=== PATIENT | female | born 2005 | race African-American/Black ===

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

== ENCOUNTER 2025-07-10 09:26 | Emergency (ER) | payer SELFPAY ==
--- OUTSIDE RECORDS SUMMARY | 2025-05-27 05:00 | XMS_ITS ---
Author Organization [facility] Address [address] [place] [address] Care Team Providers Care Java Scala Developer Name Role Phone Nadeem Whitaker Primary Care Provider Janette Lima Unavailable [phone] REASON FOR VISIT 4 week F/U Social History Sex Assigned At : Social History Observation Description Sex Assigned At Female Encounters Encounter Location Date Provider Diagnosis [address] [place] [address] 05/27/2025 Janette Lima Plan Of Treatment Next Appt Details Provider Name:Janette Lima , 07/10/2025 11:20:00 AM, [address] [place] [address] [place], [address], Progress Notes * Balwinder ROPERDOB:2005 (20 yo F)Acc No.[id number]:05/27/2025 UNLOCKED PROGRESS NOTE Patient: Balwinder HAMPTON Provider: KATIANA Escobar :2005 A ge:20 Y S ex:Female Date:05/27/2025 Phone: Address:[address] [place] [id number] Pcp:Nadeem Whitaker Subjective: * Chief Complaints: * 1 . 4 week F/U. * Medical History: Objective: * Vitals: Assessment: Plan: * Treatment: * * Electronic signature of Cher Lima on 07/10/2025 at 10:06 AM CDT Sign off status: Pending * Provider: KATIANA Escobar Date: 0 05/27/2025 Generated for Tahir sue/Kylah/Kemiitting on: 0 07/10/2025 10:06 AM CDT
--- OUTSIDE RECORDS SUMMARY | 2025-06-24 05:00 | XMS_ITS ---
Author Organization [facility] Address [address] [place] [address] Care Team Providers Care Programmer Or Analyst Name Role Phone Nadeem Whitaker Primary Care Provider Janette Lima Unavailable [phone] REASON FOR VISIT last seen 05/01/25 4 week fu Social History Sex Assigned At : Social History Observation Description Sex Assigned At Female Encounters Encounter Location Date Provider Diagnosis [address] [place] [address] 06/24/2025 Janette Lima Plan Of Treatment Next Appt Details Provider Name:Janette Lima , 07/10/2025 11:20:00 AM, [address] [place] [address] , [place], [address], Progress Notes * Balwinder ROPERDOB:2005 (20 yo F)Acc No.[id number]:06/24/2025 UNLOCKED PROGRESS NOTE Patient: Balwinder HAMPTON Provider: KATIANA Escobar :2005 A ge:20 Y S ex:Female Date:06/24/2025 Phone: Address:[address] [place] [phone] Pcp:Nadeem Whitaker Subjective: * Chief Complaints: * 1 . Last seen 05/01/25 4 week fu. * Medical History: Objective: * Vitals: Assessment: Plan: * Treatment: * * Electronic signature of Cher Lima on 07/10/2025 at 10:06 AM CDT Sign off status: Pending * Provider: KATIANA Escobar Date: 0 06/24/2025 Generated for Tahir sue/Kylah/Kareen on: 0 07/10/2025 10:06 AM CDT
--- NOTE | ~2025-07-10 | CT_ITS ---
EXAMINATION: CT abdomen pelvis w con DATE: 07/10/2025 12:19 INDICATION: Abdominal pain, nausea and vomiting TECHNIQUE: Computed tomography (CT) of the abdomen and pelvis was performed with 100 mL Omnipaque-350 intravenous contrast. Automated exposure control and iterative reconstruction technique were employed. The dose-length product was 927.28 mGy-cm. COMPARISON: None FINDINGS: Lung bases are clear. Visualized inferior heart is normal. No pericardial or pleural effusion. Small amount of residual versus reflux fluid in the distal esophagus. Liver, gallbladder, spleen, pancreas, bilateral adrenal glands and kidneys are normal. Bowels including the appendix are normal. Bladder, left ovary and anteverted uterus are normal. There is a 2.4 cm likely ruptured left corpus luteum cyst with defect in the prominent peripherally enhancing wall. Minimal right adnexal free fluid likely related to cyst rupture. No abscess or free intraperitoneal gas. No pathologically enlarged abdominal or pelvic lymphadenopathy. Bones are unremarkable. IMPRESSION: 1. 2.4 cm likely ruptured left ovarian corpus luteum cyst with minimal likely secondary free fluid at the right adnexa. No other acute intra-abdominal/pelvic process. 2. Fluid in the distal esophagus which could be due to recent fluid ingestion or reflux. Reviewed, dictated and finalized at location A. IMPRESSION: 1. 2.4 cm likely ruptured left ovarian corpus luteum cyst with minimal likely s econdary free fluid at the right adnexa. No other acute intra-abdominal/pelvic process. 2. Fluid in the distal esophagus which could be due to recent fluid ingestion o r reflux.
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
[2025-07-10 09:39] VITALS: BP 113/67; PULSE 103; RESP 16; TEMP 36.6; O2SAT 100
--- OUTSIDE RECORDS SUMMARY | 2025-07-10 10:07 | XMS_ITS | Clinical Summary ---
Author Organization [facility] Address [address] [place] [address] Phone Care Team Providers Care Labeling Associate Name Role Phone Provider, None Primary Care Provider Unavailabl e Allergies No known active allergies Medications No known medications Social History Tobacco Use Types Packs/Day Years Used Date Smoking Tobacco: Unknown Tobacco Cessation:Counseling Given: Not Answered Comments Unknown Sex and Gender Information Value Date Recorded Sex Assigned at Not on file Legal Sex Female 1:02 AM [employer] Gender Identity Not on file Sexual Orientation Not on file Last Filed Vital Signs Vital Sign Reading Time Taken Comments Blood Pressure 110/70 04/02/2025 11:08 AM CDT Pulse 80 04/02/2025 11:08 AM CDT Temperature 36.8 C (98.3 F) 04/02/2025 9:23 AM CDT Respiratory Rate 16 04/02/2025 11:08 AM CDT Oxygen Saturation 100% 04/02/2025 11:08 AM CDT Inhaled Oxygen Concentration - - Weight 86.2 kg (190 lb) 04/02/2025 9:23 AM CDT Height 160 cm (5' 3) 04/02/2025 9:23 AM CDT Body Mass Index 33.66 04/02/2025 9:23 AM CDT Plan of Treatment Not on file Care Teams Labeling Associate Relationship Specialty Start Date End Date Provider, None [place] PCP - General 12/21/23
--- OUTSIDE RECORDS SUMMARY | 2025-07-10 10:07 | XMS_ITS | Patient Health Record ---
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 Name Role Phone Sherman Nadeem Primary Care Provider Janette Lima Unavailable [phone] Allergies Allergen (clinical drug ingredient) Drug/Non Drug Allergy documented on EMR Reaction Allergy Type Onset Date Status Cat dander Cat (uncoded) Unknown Allergy Activ e Seasonale Unknown Drug Allergy Active Results Component Value Reference Range Notes Fluoxetine (Prozac), Serum Reviewed date:01/03/2025 12:09:05 PM Interpretation: Performing Lab: Notes/Report: Hemoglobin A1c* Reviewed date:01/08/2025 12:37:42 PM Interpretation: Performing Lab:[facility] [place], [address] [place] [address], Phone - [phone], Director - Megan Notes/Report: Hemoglobin A1c 5.5 4.8-5.6 % . Prediabetes: 5.7 - 6.4 Diabetes: >6.4 Glycemic control for adults with diabetes: <7.0 Vitamin B12* Reviewed date:01/08/2025 12:37:15 PM Interpretation: Performing Lab:[facility] [place], [address] [place], [place] [address] [facility], Phone - [phone], Director - Megan Notes/Report: Vitamin B12 999 922-2165 pg/mL Folate (Folic Acid), Serum* Reviewed date:01/08/2025 12:37:49 PM Interpretation: Performing Lab:[facility] [place], [address] [facility], Phone - [phone], Director - Megan Notes/Report: Folate (Folic Acid), Serum 9.6 >3.0 ng/mL A serum folate concentration of less than 3.1 ng/mL is considered to represent clinical deficiency. CBC With Differential/Platel et* Reviewed date:01/08/2025 12:38:19 PM Interpretation: Performing Lab:[facility] [place], [address] [facility], Phone - [phone], Director - Megan Notes/Report: WBC 8.9 3.4-10.8 x10E3/uL RBC 4.35 3.77-5.28 x10E6/uL Hemoglobin 12.0 11.1-15.9 g/dL Hematocrit 38.2 34.0-46.6 % MCV 88 79-97 fL MCH 27.6 26.6-33.0 pg MCHC 31.4 31.5-35.7 g/dL RDW 14.8 11.7-15.4 % Platelets 355 150-450 x10E3/uL Neutrophils 57 Not Estab. % Lymphs 28 Not Estab. % Monocytes 6 Not Estab. % Eos 8 Not Estab. % Basos 1 Not Estab. % Neutrophils (Absolute) 5.1 1.4-7.0 x10E3/uL Lymphs (Absolute) 2.5 0.7-3.1 x10E3/uL Monocytes(Absolute) 0.6 0.1-0.9 x10E3/uL Eos (Absolute) 0.7 0.0-0.4 x10E3/uL Baso (Absolute) 0.1 0.0-0.2 x10E3/uL Immature Granulocytes 0 Not Estab. % Immature Grans (Abs) 0.0 0.0-0.1 x10E3/uL Vitamin D, 25-Hydroxy* Reviewed date:01/08/2025 12:37:06 PM Interpretation: Performing Lab:[facility] [place], [address] [facility], [place], Phone - [phone], Director - Megan Notes/Report: Vitamin D, 25-Hydroxy 7.7 30.0-100.0 ng/mL Vitamin D deficiency has been defined by the [place] of [employer] and an Endocrine Society practice guideline as a level of serum 25-OH vitamin D less than 20 ng/mL (1,2). The Endocrine Society went on to further define vitamin D insufficiency as a level between 21 and 29 ng/mL (2). 1. IOM ([place] of [employer]). 2010. Dietary reference intakes for calcium and D. [place]: The National Academies Press. 2. Wendi MF, Siri WELSH, Bibi GARDINER, et al. Evaluation, treatment, and prevention of vitamin D deficiency: an Endocrine Society clinical practice guideline. JCEM. 2010; 96(7):1911-30. TSH+Free T4* Reviewed date:01/08/2025 12:36:47 PM Interpretation: Performing Lab:[facility] [address] [place] [address], Phone - [phone], Director - [facility] Notes/Report: TSH 2.370 0.450-4.500 uIU/mL T4,Free(Direct) 1.07 0.82-1.77 ng/dL Lipid Panel* Reviewed date:01/08/2025 12:37:33 PM Interpretation: Performing Lab:[facility] [address] [place] [address], Phone - [phone], Director - [facility] Notes/Report: Cholesterol, Total 164 100-199 mg/dL Triglycerides 43 0-149 mg/dL HDL Cholesterol 54 >39 mg/dL VLDL Cholesterol Hugo 9 5-40 mg/dL LDL Chol Calc ([facility]) 101 0-99 mg/dL CMP 14 Comprehensive Metabol ic Panel* Reviewed date:01/08/2025 12:38:01 PM Interpretation: Performing Lab:[facility] [place], [address] [place] [address], Phone - [phone], Director - [facility] Notes/Report: Glucose 78 70-99 mg/dL BUN 7 6-20 mg/dL Creatinine 0.70 0.57-1.00 mg/dL eGFR 127 >59 mL/min/1.73 BUN/Creatinine Ratio 10 9-23 Sodium 138 134-144 mmol/L Potassium 4.3 3.5-5.2 mmol/L Chloride 105 96-106 mmol/L Carbon Dioxide, Total 19 20-29 mmol/L Calcium 9.2 8.7-10.2 mg/dL Protein, Total 6.7 6.0-8.5 g/dL Albumin 4.1 4.0-5.0 g/dL Globulin, Total 2.6 1.5-4.5 g/dL Bilirubin, Total <0.2 0.0-1.2 mg/dL Alkaline Phosphatase 67 42-106 IU/L AST (SGOT) 17 0-40 IU/L ALT (SGPT) 13 0-32 IU/L FLUOXETINE (PROZAC) Reviewed date:01/08/2025 12:38:44 PM Interpretation: Performing Lab:[facility], [address] [facility], [place], Phone - [phone], Director - Megan Notes/Report: Fluoxetine 17 Norfluoxetine 69 Fluox. + Norfluox. 86 120 - 500 ng/mL This test was developed and its performance characteristics determined by [facility]. It has not been cleared or approved by the Food and Drug Administration. Please note reference interval change Reason For Referral No Information Medications Medication SIG (Take, Route, Frequency, Duration) Notes Start Date End Date Status buPROPion HCl ER (XL) 150 MG 1 tablet in the morning Orally Once a day; Duration: 30 day(s) 05/01/2025 Active Propranolol HCl ER 60 MG TAKE 1 CAPSULE BY MOUTH DAILY; Duration: 90 Active Ergocalciferol 1.25 MG (40187 UT) 1 capsule Orally; Duration: 30 days Active FLUoxetine HCl 40 MG 2 capsules (80mg) o nce daily Orally; Duration: 30 days Active Immunizations Vaccine Route Administration Date Status Comme nts FLU VAC NO PRSV 4VAL 6 mo+ IM Intramuscular 08/10/2024 Administered Linda Ko 08/10/2024 10:59:46 AM CDT > pt tolerated well. Social History Tobacco Use: Social History Observation Description Date Details (start date - stop date) Current Smoker NA - NA Sex Assigned At : Social History Observation Description Sex Assigned At Female Tobacco Control (Standard) Question Answer Notes Tobacco use: Current smoker Problems Problem Type SNOMED Code ICD Code Onset Dates Problem Status W/U Status Risk Notes Problem Generalized anxiety disorder (45121899) Generalized anxiety disorder (F41.1) Active confirmed Problem Vitamin D deficiency (82422159) Vitamin D deficiency (E55.9) Active confirmed Problem Recurrent major depression (disorder) (64564304) Major depressive disorder, recurrent (F33.9) Active confirmed Problem Nicotine dependence (71215818) Nicotine dependence (F17.200) Active confirmed Vital Signs Heart Rate 91 /min 02/01/2025 Temperature 98.2 degrees Fahrenheit 12/07/2024 Respiratory Rate 16 /min 12/07/2024 Blood pressure diastolic 68 mm Hg 02/01/2025 Oximetry 98 % 02/01/2025 Height 64 in 05/01/2025 Blood pressure systolic 116 mm Hg 02/01/2025 Weight 190 lbs 05/01/2025 BMI 32.61 kg/m2 05/01/2025 Encounters Encounter Location Date Provider Diagnosis [address] [place] [address] 07/12/2024 Nadeem Whitaker [address] [place] [address] 07/12/2024 Nadeem Whitaker [address] [place] [address] 08/14/2024 Nadeem Whitaker Vitamin D deficiency E55.[address] [place] [address] 09/17/2024 Nadeem Whitaker [facility] [address] [place] [address] 12/11/2024 Nadeem Whitaker Generalized anxiety disorder F41.1 ; Major depressive disorder, recurrent F33.9 ; Vitamin D deficiency E55.9 and Therapeutic drug monitoring Z51.[address] [place] [address] 01/03/2025 Nadeem Whitaker Vitamin D deficiency E55.[address] [place] [address] 01/18/2025 Nadeem Whitaker [address] [place] [address] 02/01/2025 Nadeem Whitaker Vitamin D deficiency E55.[address] [place] [address] 05/01/2025 Janette Lima [address] [facility] [place] [address] 08/10/2024 Nadeem Whitaker Generalized anxiety disorder F41.1 ; Major depressive disorder, recurrent F33.9 ; Vitamin D deficiency E55.9 and Encounter for immunization Z23 [address] [address] 09/14/2024 Nadeem Whitaker Generalized anxiety disorder F41.1 ; Major depressive disorder, recurrent F33.9 ; Vitamin D deficiency E55.9 and Nicotine dependence F17.[address] [address] 11/02/2024 Nadeem Whitaker Generalized anxiety disorder F41.1 ; Major depressive disorder, recurrent F33.9 ; Vitamin D deficiency E55.9 and Nicotine dependence F17.[address] [address] 12/07/2024 Nadeem Whitaker Generalized anxiety disorder F41.1 ; Major depressive disorder, recurrent F33.9 ; Vitamin D deficiency E55.9 and Nicotine dependence F17.[address] [address] 02/01/2025 Nadeem Whitaker Generalized anxiety disorder F41.1 ; Major depressive disorder, recurrent F33.9 ; Vitamin D deficiency E55.9 and Nicotine dependence F17.[address] [address] 07/16/2024 Nadeem Whitaker Generalized anxiety disorder F41.1 and Major depressive disorder, recurrent F33.[address] [address] 12/26/2024 Nadeem Whitaker Generalized anxiety disorder F41.1 ; Major depressive disorder, recurrent F33.9 ; Vitamin D deficiency E55.9 ; Nicotine dependence F17.200 and Therapeutic drug monitoring Z51.[address] [address] 03/06/2025 Nadeem Whitaker Generalized anxiety disorder F41.1 ; Major depressive disorder, recurrent F33.9 ; Vitamin D deficiency E55.9 and Nicotine dependence F17.[address] [address] 03/28/2025 Nadeem Whitaker Generalized anxiety disorder F41.1 ; Major depressive disorder, recurrent F33.9 ; Vitamin D deficiency E55.9 and Nicotine dependence F17.[address] [address] 05/01/2025 Janette Lima Generalized anxiety disorder F41.1 ; Major depressive disorder, recurrent F33.9 ; Vitamin D deficiency E55.9 and Nicotine dependence F17.[address] [address] 09/20/2024 Nadeem Whitaker Generalized anxiety disorder F41.1 ; Major depressive disorder, recurrent F33.9 ; Vitamin D deficiency E55.9 and Nicotine dependence F17.[address] [address] 07/12/2024 Nadeem Whitaker Generalized anxiety disorder F41.1 ; Major depressive disorder, recurrent F33.9 and Nutritional counseling Z71.3 Assessments Encounter Date Diagnosis (ICD Code) Assessment Notes Treatment Notes Treatment Clinical Notes Section Notes 07/12/2024 Generalized anxiety disorder (ICD-10 - F41.1) Duration (acute/chronic), stability (controlled/uncont rolled): Chronic, uncontrolled, slightly improved since starting fluoxetine, see HPI Current medications/effica cy: Somewhat, room for improvement Previous medication trials: sertraline (stopped because it made patient feel off) Current/previous therapies: Recently established with therapy, plans to follow up about every other week Examination as documented - see pertinent aspects of office visit documentation. Pertinent diagnostics: LABS ORDERED, PATIENT TO SCHEDULE NURSE VISIT Differential diagnoses: underlying bipolar disorder cannot be fully excluded at this time RECOMMENDATIONS: INCREASE fluoxetine as prescribed - educated patient/guardian on adverse effects, risks and benefits, as well as alternative treatments START propranolol as prescreibed - educated patient/guardian on adverse effects, risks and benefits, as well as alternative treatments Consume well balanced diet, preferably low in saturated fats (solid at room temperature, such as butter, margarine, Crisco, etc) and low in sodium (<2,000mg per day). Consume plenty of fruits/vegetables, healthy grains/whole grains, unsaturated/health y fats (liquid at room temperature, such as [...] control weight, reduces stress, and improves mood. Practice stress reduction techniques, such as guided imagery, journaling, aromatherapy, acupuncture/acupre ssure, deep breathing, etc. Practice healthy sleep hygiene - maintain regular routine, no caffeine after 1PM, no exercise 1-2 hours prior to bedtime, keep bedroom dark and cool, no TV or electronics while in bed. Consider melatonin as needed. Consider cognitive behavioral therapy for insomnia (CBT-I). Consider/Continue therapy. Consider substance cessation therapy as needed - contact office if desiring medication assisted therapy. Manage co-morbid conditions. Continue monitoring symptoms - report persistent or worsening/concerni ng symptoms to the office or go to the ER. For mental health CRISIS, please reach out to [phone] ([facility] [employer] Suicide and Crisis Lifeline), 911, go to the emergency department, or contact the [facility] Crisis Unit/Team. Follow up as scheduled in 4 weeks or sooner if necessary. Follow up with PCP and/or other specialists as advised. NEXT STEP: Consider increasing fluoxetine. Consider increasing propranolol pending response/tolerabil ity. Review LABS 07/12/2024 Major depressive disorder, recurrent (ICD-10 - F33.9) See assessment and plan for generalized anxiety disorder 07/16/2024 Generalized anxiety disorder (ICD-10 - F41.1) 09/14/2024 Generalized anxiety disorder (ICD-10 - F41.1) Duration (acute/chronic), stability (controlled/uncont rolled): Chronic, uncontrolled, slightly exacerbated compared to previous visit, suspect likely related to family dynamics surrounding patient's sexual orientation, see HPI Current medications/effica cy: Somewhat, room for improvement Previous medication trials: sertraline (stopped because it made patient feel off) Current/previous therapies: Follows up with therapy, just recently started, will be following up once weekly Examination as documented - see pertinent aspects of office visit documentation. Pertinent diagnostics: LABS COMPLETED IN , SEE CHART. Differential diagnoses: underlying bipolar disorder cannot be fully excluded at this time RECOMMENDATIONS: START bupropion as prescribed - educated patient/guardian on adverse effects, risks and benefits, as well as alternative treatments INCREASE propranolol as prescribed, consider taking at the start of your day rather than at bedtime alone - educated patient/guardian on adverse effects, risks and benefits, as well as alternative treatments Continue/modify other medications as prescribed - educated patient/guardian on adverse effects, risks and benefits, as well as alternative treatments Consume well balanced diet, preferably low in saturated fats (solid at room temperature, such as butter, margarine, Crisco, etc) and low in sodium (<2,000mg per day). Consume plenty of fruits/vegetables, healthy grains/whole grains, unsaturated/health y fats (liquid at room temperature, such as [...] control weight, reduces stress, and improves mood. Practice stress reduction techniques, such as guided imagery, journaling, aromatherapy, acupuncture/acupre ssure, deep breathing, etc. Practice healthy sleep hygiene - maintain regular routine, no caffeine after 1PM, no exercise 1-2 hours prior to bedtime, keep bedroom dark and cool, no TV or electronics while in bed. Consider melatonin as needed. Consider cognitive behavioral therapy for insomnia (CBT-I). Consider/Continue therapy. Consider substance cessation therapy as needed - contact office if desiring medication assisted therapy. Manage co-morbid conditions. Continue monitoring symptoms - report persistent or worsening/concerni ng symptoms to the office or go to the ER. For mental health CRISIS, please reach out to [phone] (National Suicide and Crisis Lifeline), 911, go to the emergency department, or contact the [facility] Crisis Unit/Team. Follow up as scheduled NEXT WEEK via video visit or sooner if necessary. Follow up with PCP and/or other specialists as advised. NEXT STEP: Consider increasing bupropion to assist further with depressive symptoms pending response/tolerabil ity. Consider increasing fluoxetine as needed. Consider increasing propranolol as needed. 09/20/2024 Generalized anxiety disorder (ICD-10 - F41.1) Duration (acute/chronic), stability (controlled/uncont rolled): Chronic, slightly improved compared to last week with recent medication adjustments and talking with therapist related to family dynamics surrounding patient's sexual orientation and relationship, see HPI Current medications/effica cy: Somewhat, room for improvement Previous medication trials: sertraline (stopped because it made patient feel off) Current/previous therapies: Follows up with therapy, just recently started, will be following up once weekly, will be startin EMDR soon Examination as documented - see pertinent aspects of office visit documentation. Pertinent diagnostics: LABS COMPLETED IN , SEE CHART. Differential diagnoses: underlying bipolar disorder cannot be fully excluded at this time RECOMMENDATIONS: CONTINUE bupropion as prescribed - educated patient/guardian on adverse effects, risks and benefits, as well as alternative treatments CONTINUE propranolol as prescribed, consider taking at the start of your day rather than at bedtime alone - educated patient/guardian on adverse effects, risks and benefits, as well as alternative treatments Continue/modify other medications as prescribed - educated patient/guardian on adverse effects, risks and benefits, as well as alternative treatments Consume well balanced diet, preferably low in saturated fats (solid at room temperature, such as butter, margarine, Crisco, etc) and low in sodium (<2,000mg per day). Consume plenty of fruits/vegetables, healthy grains/whole grains, unsaturated/health y fats (liquid at room temperature, such as [...] control weight, reduces stress, and improves mood. Practice stress reduction techniques, such as guided imagery, journaling, aromatherapy, acupuncture/acupre ssure, deep breathing, etc. Practice healthy sleep hygiene - maintain regular routine, no caffeine after 1PM, no exercise 1-2 hours prior to bedtime, keep bedroom dark and cool, no TV or electronics while in bed. Consider melatonin as needed. Consider cognitive behavioral therapy for insomnia (CBT-I). Consider/Continue therapy. Consider substance cessation therapy as needed - contact office if desiring medication assisted therapy. Manage co-morbid conditions. Continue monitoring symptoms - report persistent or worsening/concerni ng symptoms to the office or go to the ER. For mental health CRISIS, please reach out to [phone] (National Suicide and Crisis Lifeline), 911, go to the emergency department, or contact the [facility] Crisis Unit/Team. Follow up as scheduled in 2 weeks or sooner if necessary. Follow up with PCP and/or other specialists as advised. NEXT STEP: Consider increasing bupropion as needed. Consider increasing fluoxetine as needed. Consider increasing propranolol as needed. 12/07/2024 Generalized anxiety disorder (ICD-10 - F41.1) Duration (acute/chronic), stability (controlled/uncont rolled): Chronic, hasn't been able to get medications as previously prescribed due to lack of insurance, open to restarting medications and paying out of pocket at [facility] or using [facility], see HPI Current medications/effica cy: Somewhat, room for improvement Previous medication trials: sertraline (stopped because it made patient feel off) Current/previous therapies: Follows up with therapy, just recently started, will be following up once weekly Examination as documented - see pertinent aspects of office visit documentation. Pertinent diagnostics: LABS ORDERED PREVIOUSLY - PATIENT AGREEABLE TO FOLLOWING UP FOR LAB VISIT WHEN ABLE. Differential diagnoses: underlying bipolar disorder cannot be fully excluded at this time RECOMMENDATIONS: RESTART fluoxetine as prescribed - educated patient/guardian on adverse effects, risks and benefits, as well as alternative treatments CONTINUE propranolol as prescribed, consider taking at the start of your day rather than at bedtime alone - educated patient/guardian on adverse effects, risks and benefits, as well as alternative treatments Continue/modify other medications as prescribed - educated patient/guardian on adverse effects, risks and benefits, as well as alternative treatments Consume well balanced diet, preferably low in saturated fats (solid at room temperature, such as butter, margarine, Crisco, etc) and low in sodium (<2,000mg per day). Consume plenty of fruits/vegetables, healthy grains/whole grains, unsaturated/health y fats (liquid at room temperature, such as [...] control weight, reduces stress, and improves mood. Practice stress reduction techniques, such as guided imagery, journaling, aromatherapy, acupuncture/acupre ssure, deep breathing, etc. Practice healthy sleep hygiene - maintain regular routine, no caffeine after 1PM, no exercise 1-2 hours prior to bedtime, keep bedroom dark and cool, no TV or electronics while in bed. Consider melatonin as needed. Consider cognitive behavioral therapy for insomnia (CBT-I). Consider/Continue therapy. Consider substance cessation therapy as needed - contact office if desiring medication assisted therapy. Manage co-morbid conditions. Continue monitoring symptoms - report persistent or worsening/concerni ng symptoms to the office or go to the ER. For mental health CRISIS, please reach out to [phone] ([facility] [employer] [facility] Crisis [facility]), 911, go to the emergency department, or contact the [facility] Crisis Unit/Team. Follow up as scheduled in 4 weeks or sooner if necessary. Follow up with PCP and/or other specialists as advised. NEXT STEP: Consider increasing fluoxetine as needed. Consider increasing propranolol as needed. Consider other medication adjustments as needed. 12/26/2024 Generalized anxiety disorder (ICD-10 - F41.1) 01/03/2025 Vitamin D deficiency (ICD-10 - E55.9) 02/01/2025 Generalized anxiety disorder (ICD-10 - F41.1) Duration (acute/chronic), stability (controlled/uncont rolled): Chronic, improved since restarting medications as previously prescribed, see HPI Current medications/effica cy: Somewhat, room for improvement Previous medication trials: sertraline (made me feel weird) Current/previous therapies: Follows up with therapy, just recently started, will be following up once weekly Examination as documented - see pertinent aspects of office visit documentation. Pertinent diagnostics: LABS COMPLETED IN 12/2024, SEE CHART. Differential diagnoses: underlying bipolar disorder cannot be fully excluded at this time RECOMMENDATIONS: CONTINUE fluoxetine as prescribed - educated patient/guardian on adverse effects, risks and benefits, as well as alternative treatments CONTINUE propranolol as prescribed, consider taking at the start of your day rather than at bedtime alone - educated patient/guardian on adverse effects, risks and benefits, as well as alternative treatments Continue/modify other medications as prescribed - educated patient/guardian on adverse effects, risks and benefits, as well as alternative treatments Consume well balanced diet, preferably low in saturated fats (solid at room temperature, such as butter, margarine, Crisco, etc) and low in sodium (<2,000mg per day). Consume plenty of fruits/vegetables, healthy grains/whole grains, unsaturated/health y fats (liquid at room temperature, such as [...] control weight, reduces stress, and improves mood. Practice stress reduction techniques, such as guided imagery, journaling, aromatherapy, acupuncture/acupre ssure, deep breathing, etc. Practice healthy sleep hygiene - maintain regular routine, no caffeine after 1PM, no exercise 1-2 hours prior to bedtime, keep bedroom dark and cool, no TV or electronics while in bed. Consider melatonin as needed. Consider cognitive behavioral therapy for insomnia (CBT-I). Consider/Continue therapy. Consider substance cessation therapy as needed - contact office if desiring medication assisted therapy. Manage co-morbid conditions. Continue monitoring symptoms - report persistent or worsening/concerni ng symptoms to the office or go to the ER. For mental health CRISIS, please reach out to [phone] (National Suicide and Crisis Lifeline), 911, go to the emergency department, or contact the [facility] Crisis Unit/Team. Follow up as scheduled in 4 weeks or sooner if necessary. Follow up with PCP and/or other specialists as advised. NEXT STEP: Consider increasing fluoxetine as needed. Consider increasing propranolol as needed. Consider other medication adjustments as needed. 02/01/2025 Vitamin D deficiency (ICD-10 - E55.9) 03/06/2025 Generalized anxiety disorder (ICD-10 - F41.1) Duration (acute/chronic), stability (controlled/uncont rolled): Chronic, improved since restarting medications as previously prescribed, still some room for improvement, see HPI Current medications/effica cy: Somewhat, room for improvement Previous medication trials: sertraline (made me feel weird) Current/previous therapies: Follows up with therapy, just recently started, will be following up once weekly Examination as documented - see pertinent aspects of office visit documentation. Pertinent diagnostics: LABS COMPLETED IN 12/2024, SEE CHART. Differential diagnoses: underlying bipolar disorder cannot be fully excluded at this time RECOMMENDATIONS: INCREASE propranolol and switch to ER formulation as prescribed to assist further with anxiety - educated patient/guardian on adverse effects, risks and benefits, as well as alternative treatments Continue/modify other medications as prescribed - educated patient/guardian on adverse effects, risks and benefits, as well as alternative treatments Consume well balanced diet, preferably low in saturated fats (solid at room temperature, such as butter, margarine, Crisco, etc) and low in sodium (<2,000mg per day). Consume plenty of fruits/vegetables, healthy grains/whole grains, unsaturated/health y fats (liquid at room temperature, such as [...] control weight, reduces stress, and improves mood. Practice stress reduction techniques, such as guided imagery, journaling, aromatherapy, acupuncture/acupre ssure, deep breathing, etc. Practice healthy sleep hygiene - maintain regular routine, no caffeine after 1PM, no exercise 1-2 hours prior to bedtime, keep bedroom dark and cool, no TV or electronics while in bed. Consider melatonin as needed. Consider cognitive behavioral therapy for insomnia (CBT-I). Consider/Continue therapy. Consider substance cessation therapy as needed - contact office if desiring medication assisted therapy. Manage co-morbid conditions. Continue monitoring symptoms - report persistent or worsening/concerni ng symptoms to the office or go to the ER. For mental health CRISIS, please reach out to [phone] ([employer] Suicide and Crisis Lifeline), 911, go to the emergency department, or contact the [facility] Crisis Unit/Team. Follow up as scheduled in 4 weeks or sooner if necessary. Follow up with PCP and/or other specialists as advised. NEXT STEP: Consider increasing fluoxetine as needed. Consider increasing propranolol as needed. Consider other medication adjustments as needed. 05/01/2025 Generalized anxiety disorder (ICD-10 - F41.1) Duration (acute/chronic), stability (controlled/uncont rolled): Chronic, somewhat controlled, still some room for improvement, see HPI Current medications/effica cy: Somewhat, room for improvement Previous medication trials: sertraline (made me feel weird) Current/previous therapies: Follows up with therapy, just recently started, will be following up once weekly Examination as documented - see pertinent aspects of office visit documentation. Pertinent diagnostics: LABS COMPLETED IN 12/2024, SEE CHART. Differential diagnoses: underlying bipolar disorder cannot be fully excluded at this time RECOMMENDATIONS: Continue fluoxetine as prescribed to assist further with anxiety/depression - educated patient/guardian on adverse effects, risks and benefits, as well as alternative treatments Continue/modify other medications as prescribed - educated patient/guardian on adverse effects, risks and benefits, as well as alternative treatments Consume well balanced diet, preferably low in saturated fats (solid at room temperature, such as butter, margarine, Crisco, etc) and low in sodium (<2,000mg per day). Consume plenty of fruits/vegetables, healthy grains/whole grains, unsaturated/health y fats (liquid at room temperature, such as [...] control weight, reduces stress, and improves mood. Practice stress reduction techniques, such as guided imagery, journaling, aromatherapy, acupuncture/acupre ssure, deep breathing, etc. Practice healthy sleep hygiene - maintain regular routine, no caffeine after 1PM, no exercise 1-2 hours prior to bedtime, keep bedroom dark and cool, no TV or electronics while in bed. Consider melatonin as needed. Consider cognitive behavioral therapy for insomnia (CBT-I). Consider/Continue therapy. Consider substance cessation therapy as needed - contact office if desiring medication assisted therapy. Manage co-morbid conditions. Continue monitoring symptoms - report persistent or worsening/concerni ng symptoms to the office or go to the ER. For mental health CRISIS, please reach out to [phone] ([employer] Suicide and Crisis Lifeline), 911, go to the emergency department, or contact the [facility] Crisis Unit/Team. Follow up as scheduled in 4 weeks or sooner if necessary. Follow up with PCP and/or other specialists as advised. NEXT STEP: Consider increasing fluoxetine as needed. Consider increasing propranolol as needed. Consider other medication adjustments as needed., Learning About Generalized Anxiety Disorder material was published, Generalized Anxiety Disorder: Care Instructions material was published 03/28/2025 Generalized anxiety disorder (ICD-10 - F41.1) Duration (acute/chronic), stability (controlled/uncont rolled): Chronic, somewhat controlled, still some room for improvement, see HPI Current medications/effica cy: Somewhat, room for improvement Previous medication trials: sertraline (made me feel weird) Current/previous therapies: Follows up with therapy, just recently started, will be following up once weekly Examination as documented - see pertinent aspects of office visit documentation. Pertinent diagnostics: LABS COMPLETED IN 12/2024, SEE CHART. Differential diagnoses: underlying bipolar disorder cannot be fully excluded at this time RECOMMENDATIONS: INCREASE fluoxetine as prescribed to assist further with anxiety/depression - educated patient/guardian on adverse effects, risks and benefits, as well as alternative treatments Continue/modify other medications as prescribed - educated patient/guardian on adverse effects, risks and benefits, as well as alternative treatments Consume well balanced diet, preferably low in saturated fats (solid at room temperature, such as butter, margarine, Crisco, etc) and low in sodium (<2,000mg per day). Consume plenty of fruits/vegetables, healthy grains/whole grains, unsaturated/health y fats (liquid at room temperature, such as [...] control weight, reduces stress, and improves mood. Practice stress reduction techniques, such as guided imagery, journaling, aromatherapy, acupuncture/acupre ssure, deep breathing, etc. Practice healthy sleep hygiene - maintain regular routine, no caffeine after 1PM, no exercise 1-2 hours prior to bedtime, keep bedroom dark and cool, no TV or electronics while in bed. Consider melatonin as needed. Consider cognitive behavioral therapy for insomnia (CBT-I). Consider/Continue therapy. Consider substance cessation therapy as needed - contact office if desiring medication assisted therapy. Manage co-morbid conditions. Continue monitoring symptoms - report persistent or worsening/concerni ng symptoms to the office or go to the ER. For mental health CRISIS, please reach out to [phone] ([employer] [facility]icide [facility] Crisis [facility]), 911, go to the emergency department, or contact the [facility] Crisis Unit/Team. Follow up as scheduled in 4 weeks or sooner if necessary. Follow up with PCP and/or other specialists as advised. NEXT STEP: Consider increasing fluoxetine as needed. Consider increasing propranolol as needed. Consider other medication adjustments as needed. 12/11/2024 Generalized anxiety disorder (ICD-10 - F41.1) 12/11/2024 Major depressive disorder, recurrent (ICD-10 - F33.9) 11/02/2024 Generalized anxiety disorder (ICD-10 - F41.1) Duration (acute/chronic), stability (controlled/uncont rolled): Chronic, noticeably improved from previous visit, still some room for improvement, see HPI Current medications/effica cy: Somewhat, room for improvement Previous medication trials: sertraline (stopped because it made patient feel off) Current/previous therapies: Follows up with therapy, just recently started, will be following up once weekly, will be startin EMDR soon Examination as documented - see pertinent aspects of office visit documentation. Pertinent diagnostics: LABS COMPLETED IN , SEE CHART. Differential diagnoses: underlying bipolar disorder cannot be fully excluded at this time RECOMMENDATIONS: INCREASE fluoxetine as prescribed - educated patient/guardian on adverse effects, risks and benefits, as well as alternative treatments CONTINUE propranolol as prescribed, consider taking at the start of your day rather than at bedtime alone - educated patient/guardian on adverse effects, risks and benefits, as well as alternative treatments Continue/modify other medications as prescribed - educated patient/guardian on adverse effects, risks and benefits, as well as alternative treatments Consume well balanced diet, preferably low in saturated fats (solid at room temperature, such as butter, margarine, Crisco, etc) and low in sodium (<2,000mg per day). Consume plenty of fruits/vegetables, healthy grains/whole grains, unsaturated/health y fats (liquid at room temperature, such as [...] control weight, reduces stress, and improves mood. Practice stress reduction techniques, such as guided imagery, journaling, aromatherapy, acupuncture/acupre ssure, deep breathing, etc. Practice healthy sleep hygiene - maintain regular routine, no caffeine after 1PM, no exercise 1-2 hours prior to bedtime, keep bedroom dark and cool, no TV or electronics while in bed. Consider melatonin as needed. Consider cognitive behavioral therapy for insomnia (CBT-I). Consider/Continue therapy. Consider substance cessation therapy as needed - contact office if desiring medication assisted therapy. Manage co-morbid conditions. Continue monitoring symptoms - report persistent or worsening/concerni ng symptoms to the office or go to the ER. For mental health CRISIS, please reach out to [phone] ([employer] Suicide and Crisis Lifeline), 911, go to the emergency department, or contact the [facility] Crisis Unit/Team. Follow up as scheduled in 4 weeks or sooner if necessary. Follow up with PCP and/or other specialists as advised. NEXT STEP: Consider increasing fluoxetine as needed. Consider increasing propranolol as needed. Consider other medication adjustments as needed. 08/14/2024 Vitamin D deficiency (ICD-10 - E55.9) 08/10/2024 Generalized anxiety disorder (ICD-10 - F41.1) Duration (acute/chronic), stability (controlled/uncont rolled): Chronic, uncontrolled, slightly improved since starting fluoxetine, see HPI Current medications/effica cy: Somewhat, room for improvement Previous medication trials: sertraline (stopped because it made patient feel off) Current/previous therapies: Recently established with therapy, plans to follow up about every other week Examination as documented - see pertinent aspects of office visit documentation. Pertinent diagnostics: LABS COMPLETED IN - INDICATED VITAMIN D DEFICIENCY; OTHERWISE, UNREMARKABLE - SEE CHART Differential diagnoses: underlying bipolar disorder cannot be fully excluded at this time RECOMMENDATIONS: INCREASE fluoxetine as prescribed - educated patient/guardian on adverse effects, risks and benefits, as well as alternative treatments CONTINUE propranolol as prescribed, consider taking at the start of your day rather than at bedtime alone - educated patient/guardian on adverse effects, risks and benefits, as well as alternative treatments Consume well balanced diet, preferably low in saturated fats (solid at room temperature, such as butter, margarine, Crisco, etc) and low in sodium (<2,000mg per day). Consume plenty of fruits/vegetables, healthy grains/whole grains, unsaturated/health y fats (liquid at room temperature, such as [...] control weight, reduces stress, and improves mood. Practice stress reduction techniques, such as guided imagery, journaling, aromatherapy, acupuncture/acupre ssure, deep breathing, etc. Practice healthy sleep hygiene - maintain regular routine, no caffeine after 1PM, no exercise 1-2 hours prior to bedtime, keep bedroom dark and cool, no TV or electronics while in bed. Consider melatonin as needed. Consider cognitive behavioral therapy for insomnia (CBT-I). Consider/Continue therapy. Consider substance cessation therapy as needed - contact office if desiring medication assisted therapy. Manage co-morbid conditions. Continue monitoring symptoms - report persistent or worsening/concerni ng symptoms to the office or go to the ER. For mental health CRISIS, please reach out to [phone] ([employer] Suicide and Crisis Lifeline), 911, go to the emergency department, or contact the [facility] Crisis Unit/Team. Follow up as scheduled in 4 weeks or sooner if necessary. Follow up with PCP and/or other specialists as advised. NEXT STEP: Consider increasing fluoxetine. Consider increasing propranolol pending response/tolerabil ity. 08/10/2024 Major depressive disorder, recurrent (ICD-10 - F33.9) See assessment and plan for generalized anxiety disorder 08/10/2024 Vitamin D deficiency (ICD-10 - E55.9) Duration (acute/chronic), stability (controlled/uncont rolled): Unknown duration, noted on recent labs collected in Current medications/effica cy: N/A Previous medication trials: N/A Current/previous therapies: N/A Examination as documented - see pertinent aspects of office visit documentation. Pertinent diagnostics: LABS COMPLETED IN - INDICATED VITAMIN D DEFICIENCY; OTHERWISE, UNREMARKABLE - SEE CHART Differential diagnoses: RECOMMENDATIONS: START vitamin D supplementation as prescribed - educated patient/guardian on adverse effects, risks and benefits, as well as alternative treatments Consume well balanced diet, preferably low in saturated fats (solid at room temperature, such as butter, margarine, Crisco, etc) and low in sodium (<2,000mg per day). Consume plenty of fruits/vegetables, healthy grains/whole grains, unsaturated/health y fats (liquid at room temperature, such as [...] Continue monitoring symptoms - report persistent or worsening/concerni ng symptoms to the office or go to the ER. For mental health CRISIS, please reach out to [phone] ([employer] Suicide and Crisis Lifeline), 911, go to the emergency department, or contact the [facility] Crisis Unit/Team. Follow up as scheduled or sooner if necessary. Follow up with PCP and/or other specialists as advised. NEXT STEP: Consider repeating vitamin D level in about 2-3 months. 11/02/2024 Major depressive disorder, recurrent (ICD-10 - F33.9) See assessment and plan for generalized anxiety disorder 12/11/2024 Vitamin D deficiency (ICD-10 - E55.9) 03/28/2025 Major depressive disorder, recurrent (ICD-10 - F33.9) See assessment and plan for generalized anxiety disorder 05/01/2025 Major depressive disorder, recurrent (ICD-10 - F33.9) See assessment and plan for generalized anxiety disorder , Depression Treatment: Care Instructions material was published 03/06/2025 Major depressive disorder, recurrent (ICD-10 - F33.9) See assessment and plan for generalized anxiety disorder 02/01/2025 Major depressive disorder, recurrent (ICD-10 - F33.9) See assessment and plan for generalized anxiety disorder 12/26/2024 Major depressive disorder, recurrent (ICD-10 - F33.9) 12/07/2024 Major depressive disorder, recurrent (ICD-10 - F33.9) See assessment and plan for generalized anxiety disorder 09/20/2024 Major depressive disorder, recurrent (ICD-10 - F33.9) See assessment and plan for generalized anxiety disorder 09/14/2024 Major depressive disorder, recurrent (ICD-10 - F33.9) See assessment and plan for generalized anxiety disorder 07/16/2024 Major depressive disorder, recurrent (ICD-10 - F33.9) 07/12/2024 Nutritional counseling (ICD-10 - Z71.3) 09/14/2024 Vitamin D deficiency (ICD-10 - E55.9) Duration (acute/chronic), stability (controlled/uncont rolled): LIkely chronic problem, noted on recent labs collected in - recently started on supplementation, tolerating well without complication or complaint Current medications/effica cy: N/A Previous medication trials: N/A Current/previous therapies: N/A Examination as documented - see pertinent aspects of office visit documentation. Pertinent diagnostics: LABS COMPLETED IN - INDICATED VITAMIN D DEFICIENCY; OTHERWISE, UNREMARKABLE - SEE CHART Differential diagnoses: RECOMMENDATIONS: CONTINUE vitamin D supplementation as prescribed - educated patient/guardian on adverse effects, risks and benefits, as well as alternative treatments Consume well balanced diet, preferably low in saturated fats (solid at room temperature, such as butter, margarine, Crisco, etc) and low in sodium (<2,000mg per day). Consume plenty of fruits/vegetables, healthy grains/whole grains, unsaturated/health y fats (liquid at room temperature, such as [...] Continue monitoring symptoms - report persistent or worsening/concerni ng symptoms to the office or go to the ER. For mental health CRISIS, please reach out to [phone] ([employer] [facility]), 911, go to the emergency department, or contact the [facility] Crisis Unit/Team. Follow up as scheduled or sooner if necessary. Follow up with PCP and/or other specialists as advised. NEXT STEP: Consider repeating vitamin D level in about 2-3 months. 09/20/2024 Vitamin D deficiency (ICD-10 - E55.9) Duration (acute/chronic), stability (controlled/uncont rolled): LIkely chronic problem, noted on recent labs collected in - recently started on supplementation, tolerating well without complication or complaint Current medications/effica cy: N/A Previous medication trials: N/A Current/previous therapies: N/A Examination as documented - see pertinent aspects of office visit documentation. Pertinent diagnostics: LABS COMPLETED IN - INDICATED VITAMIN D DEFICIENCY; OTHERWISE, UNREMARKABLE - SEE CHART Differential diagnoses: RECOMMENDATIONS: CONTINUE vitamin D supplementation as prescribed - educated patient/guardian on adverse effects, risks and benefits, as well as alternative treatments Consume well balanced diet, preferably low in saturated fats (solid at room temperature, such as butter, margarine, Crisco, etc) and low in sodium (<2,000mg per day). Consume plenty of fruits/vegetables, healthy grains/whole grains, unsaturated/health y fats (liquid at room temperature, such as [...] Continue monitoring symptoms - report persistent or worsening/concerni ng symptoms to the office or go to the ER. For mental health CRISIS, please reach out to [phone] ([employer] Suicide and Crisis Lifeline), 911, go to the emergency department, or contact the [facility] Crisis Unit/Team. Follow up as scheduled or sooner if necessary. Follow up with PCP and/or other specialists as advised. NEXT STEP: Consider repeating vitamin D level in about 2-3 months. 12/07/2024 Vitamin D deficiency (ICD-10 - E55.9) Duration (acute/chronic), stability (controlled/uncont rolled): LIkely chronic problem, noted on recent labs collected in - ran out of vitamin D supplement prescribed by provider, planning to get supplementation OTC Current medications/effica cy: N/A Previous medication trials: N/A Current/previous therapies: N/A Examination as documented - see pertinent aspects of office visit documentation. Pertinent diagnostics: LABS COMPLETED IN - INDICATED VITAMIN D DEFICIENCY; OTHERWISE, UNREMARKABLE - SEE CHART Differential diagnoses: RECOMMENDATIONS: CONTINUE vitamin D supplementation as prescribed - educated patient/guardian on adverse effects, risks and benefits, as well as alternative treatments Consume well balanced diet, preferably low in saturated fats (solid at room temperature, such as butter, margarine, Crisco, etc) and low in sodium (<2,000mg per day). Consume plenty of fruits/vegetables, healthy grains/whole grains, unsaturated/health y fats (liquid at room temperature, such as [...] Continue monitoring symptoms - report persistent or worsening/concerni ng symptoms to the office or go to the ER. For mental health CRISIS, please reach out to [phone] ([employer] [facility]), 911, go to the emergency department, or contact the [facility] Crisis Unit/Team. Follow up as scheduled or sooner if necessary. Follow up with PCP and/or other specialists as advised. NEXT STEP: Review repeat labs after completion 12/26/2024 Vitamin D deficiency (ICD-10 - E55.9) 02/01/2025 Vitamin D deficiency (ICD-10 - E55.9) Duration (acute/chronic), stability (controlled/uncont rolled): Chronic, needing refill on vitamin D supplementation, previously getting OTC Current medications/effica cy: Unknown until repeat labs completed Previous medication [...] Consume plenty of fruits/vegetables, healthy grains/whole grains, unsaturated/health y fats (liquid at room temperature, such as [...] Continue monitoring symptoms - report persistent or worsening/concerni ng symptoms to the office or go to the ER. For mental health CRISIS, please reach out to [phone] ([employer] Suicide [facility] Crisis [facility]), 911, go to the emergency department, or contact the [facility]/Team. Follow up as scheduled or sooner if necessary. Follow up with PCP and/or other specialists as advised. NEXT STEP: Repeat labs approximately 03/202503/06/2025 Vitamin D deficiency (ICD-10 - E55.9) Duration (acute/chronic), stability (controlled/uncont rolled): Chronic, taking vitamin D supplementation Current medications/effica cy: Unknown until repeat labs completed Previous medication [...] Consume plenty of fruits/vegetables, healthy grains/whole grains, unsaturated/health y fats (liquid at room temperature, such as [...] Continue monitoring symptoms - report persistent or worsening/concerni ng symptoms to the office or go to the ER. For mental health CRISIS, please reach out to [phone] ([employer] [facility]), 911, go to the emergency department, or contact the [facility]/Team. Follow up as scheduled or sooner if necessary. Follow up with PCP and/or other specialists as advised. NEXT STEP: Repeat labs approximately 03/202505/01/2025 Vitamin D deficiency (ICD-10 - E55.9) Duration (acute/chronic), stability (controlled/uncont rolled): Chronic, taking vitamin D supplementation Current medications/effica cy: Unknown until repeat labs completed Previous medication [...] Consume plenty of fruits/vegetables, healthy grains/whole grains, unsaturated/health y fats (liquid at room temperature, such as [...] Continue monitoring symptoms - report persistent or worsening/concerni ng symptoms to the office or go to the ER. For mental health CRISIS, please reach out to [phone] ([employer] [facility]), 911, go to the emergency department, or contact the [facility]/Team. Follow up as scheduled or sooner if necessary. Follow up with PCP and/or other specialists as advised. NEXT STEP: Repeat labs approximately 03/202503/28/2025 Vitamin D deficiency (ICD-10 - E55.9) Duration (acute/chronic), stability (controlled/uncont rolled): Chronic, taking vitamin D supplementation Current medications/effica cy: Unknown until repeat labs completed Previous medication [...] Consume plenty of fruits/vegetables, healthy grains/whole grains, unsaturated/health y fats (liquid at room temperature, such as [...] Continue monitoring symptoms - report persistent or worsening/concerni ng symptoms to the office or go to the ER. For mental health CRISIS, please reach out to [phone] ([employer] [facility]), 911, go to the emergency department, or contact the [facility] Unit/Team. Follow up as scheduled or sooner if necessary. Follow up with PCP and/or other specialists as advised. NEXT STEP: Repeat labs approximately 03/202512/11/2024 Therapeutic drug monitoring (ICD-10 - Z51.81) 11/02/2024 Vitamin D deficiency (ICD-10 - E55.9) Duration (acute/chronic), stability (controlled/uncont rolled): LIkely chronic problem, noted on recent labs collected in - recently started on supplementation, tolerating well without complication or complaint Current medications/effica cy: N/A Previous medication trials: N/A Current/previous therapies: N/A Examination as documented - see pertinent aspects of office visit documentation. Pertinent diagnostics: LABS COMPLETED IN - INDICATED VITAMIN D DEFICIENCY; OTHERWISE, UNREMARKABLE - SEE CHART Differential diagnoses: RECOMMENDATIONS: CONTINUE vitamin D supplementation as prescribed - educated patient/guardian on adverse effects, risks and benefits, as well as alternative treatments Consume well balanced diet, preferably low in saturated fats (solid at room temperature, such as butter, margarine, Crisco, etc) and low in sodium (<2,000mg per day). Consume plenty of fruits/vegetables, healthy grains/whole grains, unsaturated/health y fats (liquid at room temperature, such as [...] Continue monitoring symptoms - report persistent or worsening/concerni ng symptoms to the office or go to the ER. For mental health CRISIS, please reach out to [phone] ([employer] [facility]icide [facility] Crisis [facility]), 911, go to the emergency department, or contact the [facility] Crisis Unit/Team. Follow up as scheduled or sooner if necessary. Follow up with PCP and/or other specialists as advised. NEXT STEP: Consider repeating vitamin D level in about 2-3 months. 08/10/2024 Encounter for immunization (ICD-10 - Z23) Ordered per standing orders for administering influenza vaccine to adults. 11/02/2024 Nicotine dependence (ICD-10 - F17.200) Duration (acute/chronic), stability (controlled/uncont rolled): Chronic, Vapes, multiple times daily - patient verbalized no intent to quit at this time Current medications/effica cy: N/A Previous medication trials: N/A RECOMMENDATIONS: Consider substance cessation therapy as needed - contact office if desiring medication assisted therapy. Manage co-morbid conditions. Continue monitoring symptoms - report persistent or worsening/concerni ng symptoms to the office or go to the ER. For mental health CRISIS, please reach out to [phone] ([facility] [employer] [facility]), 911, go to the emergency department, or contact the [facility] Crisis Unit/Team. Follow up as scheduled or sooner if necessary. Follow up with PCP and/or other specialists as advised. NEXT STEP: Consider MAT as needed. 03/28/2025 Nicotine dependence (ICD-10 - F17.200) Duration (acute/chronic), stability (controlled/uncont rolled): Chronic, Vapes, multiple times daily - patient verbalized no intent to quit at this time Current medications/effica cy: N/A Previous medication trials: N/A RECOMMENDATIONS: Consider substance cessation therapy as needed - contact office if desiring medication assisted therapy. Manage co-morbid conditions. Continue monitoring symptoms - report persistent or worsening/concerni ng symptoms to the office or go to the ER. For mental health CRISIS, please reach out to [phone] ([facility] [employer] [facility]), 911, go to the emergency department, or contact the [facility] Crisis Unit/Team. Follow up as scheduled or sooner if necessary. Follow up with PCP and/or other specialists as advised. NEXT STEP: Consider MAT as needed. 05/01/2025 Nicotine dependence (ICD-10 - F17.200) Duration (acute/chronic), stability (controlled/uncont rolled): Chronic, Vapes, multiple times daily - patient verbalized no intent to quit at this time Current medications/effica cy: N/A Previous medication trials: N/A RECOMMENDATIONS: Consider substance cessation therapy as needed - contact office if desiring medication assisted therapy. Manage co-morbid conditions. Continue monitoring symptoms - report persistent or worsening/concerni ng symptoms to the office or go to the ER. For mental health CRISIS, please reach out to [phone] ([facility] Suicide [facility] Crisis Lif[facility]), 911, go to the emergency department, or contact the [facility] Crisis Unit/Team. Follow up as scheduled or sooner if necessary. Follow up with PCP and/or other specialists as advised. NEXT STEP: Consider MAT as needed., Quitting Tobacco: Care Instructions material was published 03/06/2025 Nicotine dependence (ICD-10 - F17.200) Duration (acute/chronic), stability (controlled/uncont rolled): Chronic, Vapes, multiple times daily - patient verbalized no intent to quit at this time Current medications/effica cy: N/A Previous medication trials: N/A RECOMMENDATIONS: Consider substance cessation therapy as needed - contact office if desiring medication assisted therapy. Manage co-morbid conditions. Continue monitoring symptoms - report persistent or worsening/concerni ng symptoms to the office or go to the ER. For mental health CRISIS, please reach out to [phone] ([facility] Suicide [facility] Crisis Lif[facility]), 911, go to the emergency department, or contact the [facility] Crisis Unit/Team. Follow up as scheduled or sooner if necessary. Follow up with PCP and/or other specialists as advised. NEXT STEP: Consider MAT as needed. 02/01/2025 Nicotine dependence (ICD-10 - F17.200) Duration (acute/chronic), stability (controlled/uncont rolled): Chronic, Vapes, multiple times daily - patient verbalized no intent to quit at this time Current medications/effica cy: N/A Previous medication trials: N/A RECOMMENDATIONS: Consider substance cessation therapy as needed - contact office if desiring medication assisted therapy. Manage co-morbid conditions. Continue monitoring symptoms - report persistent or worsening/concerni ng symptoms to the office or go to the ER. For mental health CRISIS, please reach out to [phone] ([facility] Suicide and Crisis Lif[facility]), 911, go to the emergency department, or contact the [facility] Crisis Unit/Team. Follow up as scheduled or sooner if necessary. Follow up with PCP and/or other specialists as advised. NEXT STEP: Consider MAT as needed. 12/26/2024 Nicotine dependence (ICD-10 - F17.200) 12/07/2024 Nicotine dependence (ICD-10 - F17.200) Duration (acute/chronic), stability (controlled/uncont rolled): Chronic, Vapes, multiple times daily - patient verbalized no intent to quit at this time Current medications/effica cy: N/A Previous medication trials: N/A RECOMMENDATIONS: Consider substance cessation therapy as needed - contact office if desiring medication assisted therapy. Manage co-morbid conditions. Continue monitoring symptoms - report persistent or worsening/concerni ng symptoms to the office or go to the ER. For mental health CRISIS, please reach out to [phone] (National Suicide and Crisis Lifeline), 911, go to the emergency department, or contact the [facility] Crisis Unit/Team. Follow up as scheduled or sooner if necessary. Follow up with PCP and/or other specialists as advised. NEXT STEP: Consider MAT as needed. 09/20/2024 Nicotine dependence (ICD-10 - F17.200) Duration (acute/chronic), stability (controlled/uncont rolled): Chronic, Vapes, multiple times daily - patient verbalized no intent to quit at this time Current medications/effica cy: N/A Previous medication trials: N/A RECOMMENDATIONS: Consider substance cessation therapy as needed - contact office if desiring medication assisted therapy. Manage co-morbid conditions. Continue monitoring symptoms - report persistent or worsening/concerni ng symptoms to the office or go to the ER. For mental health CRISIS, please reach out to [phone] ([facility]), 911, go to the emergency department, or contact the [facility] Crisis Unit/Team. Follow up as scheduled or sooner if necessary. Follow up with PCP and/or other specialists as advised. NEXT STEP: Consider MAT as needed. 09/14/2024 Nicotine dependence (ICD-10 - F17.200) Duration (acute/chronic), stability (controlled/uncont rolled): Chronic, Vapes, multiple times daily - patient verbalized no intent to quit at this time Current medications/effica cy: N/A Previous medication trials: N/A RECOMMENDATIONS: Consider substance cessation therapy as needed - contact office if desiring medication assisted therapy. Manage co-morbid conditions. Continue monitoring symptoms - report persistent or worsening/concerni ng symptoms to the office or go to the ER. For mental health CRISIS, please reach out to [phone] ([facility]), 911, go to the emergency department, or contact the [facility] Crisis Unit/Team. Follow up as scheduled or sooner if necessary. Follow up with PCP and/or other specialists as advised. NEXT STEP: Consider MAT as needed. 12/26/2024 Therapeutic drug monitoring (ICD-10 - Z51.81) 05/01/2025 Other Bupropion mater ial was published Plan Of Treatment Pending Test Test Name Order Date Vitamin B12* 07/16/2024 Folate (Folic Acid), Serum* 07/16/2024 CBC With Differential/Platelet* 07/16/20 24 Vitamin D, 25-Hydroxy* 07/16/2024 TSH+Free T4* 07/16/2024 Lipid Panel* 07/16/2024 CMP 14 Comprehensive Metabolic Panel* Next Appt Details Provider Name:Janette Diaz Clarence , 07/10/2025 11:20:00 AM, [address] [facility] [address], [place], [address], Insurance Providers Payer Name Payer Address Payer Phone Subscriber Number Group Number Insured Name Patient Relationship to Insured Coverage Start Date Coverage End Date [facility] Attn Claims Department [address] [place] [address] [id number] Balwinder Moore Self - patient is the insured 4 4 [facility] Attn Claims Department [address] [place] [address] [id number] Balwinder Moore Self - patient is the insured 4 4
--- OUTSIDE RECORDS SUMMARY | 2025-07-10 10:07 | XMS_ITS | Clinical Summary ---
Author Organization [facility] Address [address] [place] [address] Care Team Providers Care Hand Crocheter Name Role Phone Nadeem Whitaker NP Primary Care Provider [phone] Allergies No known active allergies Social History Tobacco Use Types Packs/Day Years Used Date Smoking Tobacco: Never Assessed Personal Safety Answer Date Recorded Have you ever been in or are you currently in a harmful physical or emotional relationship or is someone making you feel afraid or unsafe? Denies 03/18/2025 Comments Unknown Sex and Gender Information Value Date Recorded Sex Assigned at Not on file Legal Sex Female 3:39 PM CDT Gender Identity Not on file Sexual Orientation Not on file Last Filed Vital Signs Vital Sign Reading Time Taken Comments Blood Pressure 100/64 03/18/2025 1:01 PM CDT Pulse 84 03/18/2025 1:01 PM CDT Temperature 36.4 C (97.6 F) 03/18/2025 10:54 AM CDT Respiratory Rate 20 03/18/2025 1:01 PM CDT Oxygen Saturation 98% 03/18/2025 1:01 PM CDT Inhaled Oxygen Concentration - - Weight 86.2 kg (190 lb) 03/18/2025 10:54 AM CDT Height 160 cm (5' 3) 03/18/2025 10:54 AM CDT Body Mass Index 33.66 03/18/2025 10:54 AM CDT Plan of Treatment Health Maintenance Due Date Last Done Comments Cervical Cancer Screening 2004 Depression Screening 2004 Hepatitis C Screening 2004 HPV Vaccines (1 - 3-dose series) 02/13/2019 Meningococcal B Vaccine (1 o f 2 - Standard) 2020 Regular Well Visit/Exam 18-64 02/13/2022 Covid-19 Vaccine (4 - 2024-2 6 season) 2025 11/12/2021, 03/20/2021, 01/31/2021 Influenza Vaccine (#1) 2025 5, 09/24/2005, 08/19/2005 DTaP/Tdap/Td Vaccine (7 - Td or Tdap) 07/04/2025 07/04/2015, 2009, 08/19/2005, Additional history exists Hepatitis B Screening Completed 2004 , 2004, 2004, Additional history exists Pneumococcal vaccine <65 Completed 005, 2004, 2004, Additional history exists Varicella Vaccines Completed 02/20/2008, 0 05/21/2005, 02/19/2005 Meningococcal Vaccine Completed 07/25/2021, 015 Care Teams Hand Crocheter Relationship Specialty Start Date End Date Nadeem Whitaker NP [address] [address] PCP - General Family Medicine 07/18/24
--- NOTE | 2025-07-10 10:15 | PC.NURSE ---
pt attempted to give urine sample, unable to provide one at this time. pt educated on how to give sample and how to use call light when collected.
[2025-07-10 10:58] LABS: Hematocrit 38.5 % (37.0-47.0); Hemoglobin 12.6 g/dL (12.0-15.0); Immature Granulocyte Percent A 0.2 % (0-0.5); Lymphocytes Absolute Auto 0.87 K/mm3 (0.9-3.2); Mean Corpuscular HGB Conc 32.7 g/dl (32-36); Mean Corpuscular Hemoglobin 28.5 pg (26-34); Mean Corpuscular Volume 87.1 fl (80-100); Nucleated Red Blood Cells Absolute Auto 0.000 K/mm3 (0.0-0.012); Nucleated Red Blood Cells Perc 0.0 % (0.0-0.2); Platelet Count Result 285 k/mm3 (150-375); Red Blood Count 4.42 M/mm3 (4.2-5.4); White Blood Count 8.5 K/mm3 (4.5-10.0)
[2025-07-10] MEDS: SODIUM CHLORIDE 0.9% IV 1,000 ML 999 ML IV CONT (11:04)
[2025-07-10 11:21] LABS: Alanine Aminotransferase 14 U/L (6-35); Albumin Level 4.1 g/dL (3.5-5.1); Alkaline Phosphatase 52 U/L (38-126); Anion Gap 6 mmol/L (4-12); Aspartate Amino Transferase 21 U/L (14-36); Bilirubin,Total 0.5 mg/dL (0.2-1.3); Blood Urea Nitrogen 9 mg/dL (7-17); Calcium 8.7 mg/dL (8.4-10.2); Carbon Dioxide 23 mmol/L (22-30); Chloride 103 mmol/L (98-107); Estimated CRCL calculation 106 ml/min; Estimated Glomerular Filt Rate > 60; Glucose 96 mg/dL (65-110); Lipase 33 U/L (23-300); Potassium 4.0 mmol/L (3.4-5.0); Sodium 132 mmol/L (137-145); Total Protein 7.5 g/dL (6.3-8.2)
[2025-07-10 11:42] LABS: BEDSIDEPREGUCG Negative (Negative)
[2025-07-10 12:08] LABS: Add Urine Microscopic? YES; Appearance Urine Clear (Clear); Glucose Urine UA Negative (Negative); Leukocyte Esterase Ur Negative LEU/UL (Negative); Nitrate Urine Negative (Negative); Non Pathogenic Casts 0-2; Specific Grav Ur 1.017 (1.001-1.035)
--- OUTSIDE RECORDS SUMMARY | 2025-07-10 12:09 | XMS_ITS | Clinical Summary ---
Author Organization 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
--- OUTSIDE RECORDS SUMMARY | 2025-07-10 12:09 | XMS_ITS | Clinical Summary ---
Author Organization [facility] Address [address] [place] [address] Care Team Providers Care Helpdesk Technician Name Role Phone Nadeem Whitaker NP Primary Care Provider [phone] Allergies No known active allergies Social History [...] Meningococcal Vaccine Completed 07/25/2021, 015 Care Teams Helpdesk Technician Relationship Specialty Start Date End Date Nadeem Whitaker NP [address] [place] [address] PCP - General Family Medicine 07/18/24
--- NOTE | 2025-07-10 12:39 | ED_ITS ---
HPI - Abdominal Pain General Chief Complaint: Abdominal Pain Stated Complaint: abdominal pain Time Seen by Provider: 07/10/25 10:10 Source: patient Mode of arrival: ambulatory Limitations: no limitations History of Present Illness HPI narrative: 20-year-old otherwise healthy here with the complaints of left lower abdominal pain for past 2 days. Patient states every time she moves she gets pain in the left lower abdomen. Denies any fever or chills. No history of nausea vomiting. MD elicited complaint: abdominal pain Onset (ago): day(s) (2) Pain Consistency: constant Location: LLQ Severity: moderate Quality: aching Radiation: none Migration to: no migration Exacerbating factors: movement Relieving factors: nothing Related Data Allergies Allergy/AdvReac Type Severity Reaction Status Date / Time No Known Allergies Allergy Verified 07/10/25 10:53 PMFSH Past Medical History Medical History Surveillance for Depo-Provera contraception No active medical problems Surgical History Surgical History No pertinent past surgical history Family History Family History Grandparent Diabetes mellitus Social History Social History Smoking status: Never smoker Alcohol intake: never Substance use: never Lack of Transportation: No Lack of Food: Never True Current Housing: I Have Housing Concerned About Future Housing: No Difficulty Paying Gas/Electric Bills: No Difficulty Paying for Meds: No Currently Unemployed: No Education: Bachelor's Degree Difficulty w/ Childcare or Family Care: No Gender identity (if verbalized by the patient): Female Exam 2 Narrative: GENERAL: Well-appearing, well-nourished, and in no acute distress. HEAD: Normocephalic, atraumatic. EYES: PERRLA and EOMI. ENT: Nares clear, no rhinorrhea or epistaxis. Mucous membranes moist. NECK: Supple. CHEST: Clear to auscultation. No respiratory distress. HEART: Regular rate and rhythm. No murmur heard. Normal peripheral pulses. ABDOMEN: Soft, nontender, nondistended, normal active bowel sounds. EXTREMITIES: Normal range of motion. No edema. SKIN: Warm, dry, no rash. NEURO: No focal deficits. Alert and oriented x3. PSYCH: Normal mood and affect. Course Course Emergency Course: Informed her about the lab work, CT findings. Advised her to take Tylenol ibuprofen for pain, follow with the primary doctor. Vital Signs Vital signs: Vital Signs Temperature 36.6 C 07/10/25 09:39 Pulse Rate 103 H 07/10/25 09:39 Respiratory Rate 16 07/10/25 09:39 Blood Pressure 113/67 07/10/25 09:39 Pulse Oximetry 100 07/10/25 09:39 Oxygen Delivery Room Air 07/10/25 09:39 Temperature 36.6 C 07/10/25 09:39 Pulse Rate 103 H 07/10/25 09:39 Respiratory Rate 16 07/10/25 09:39 Blood Pressure 113/67 07/10/25 09:39 Pulse Oximetry 100 07/10/25 09:39 Oxygen Delivery Room Air 07/10/25 09:39 MDM - Abdominal Pain Lab Data 07/10/25 10:52 07/10/25 10:52 Labs: Lab Results 07/10/25 07/10/25 07/10/25 Range/Units 10:52 11:40 11:51 WBC 8.5 (4.5-10.0) K/mm3 RBC 4.42 (4.2-5.4) M/mm3 Hgb 12.6 (12.0-15.0) g/dL Hct 38.5 (37.0-47.0) % MCV 87.1 (80-100) fl MCH 28.5 (26-34) pg MCHC 32.7 (32-36) g/dl RDW 13.0 (11.5-14.5) % Plt Count 285 (150-375) k/mm3 MPV 9.8 (7.4-10.4) fl Immature Gran % (Auto) 0.2 (0-0.5) % Neut % (Auto) 76.5 H (45.5-73.1) % Lymph % (Auto) 10.2 L (18.3-44.2) % [place] % (Auto) 10.7 H (2.6-8.5) % Eos % (Auto) 2.3 (0-4.4) % Baso % (Auto) 0.1 L (0.2-1.2) % Lymph # (Auto) 0.87 L (0.9-3.2) K/mm3 [place] # (Auto) 0.9 H (0.1-0.6) K/mm3 Eos # (Auto) 0.2 (0-0.3) K/mm3 Baso # (Auto) 0.0 (0.0-0.1) K/mm3 Abs Immat Gran (auto) 0.02 (0.00-0.031) K/mm3 Absolute Neuts (auto) 6.5 (1.3-6.7) K/mm3 Absolute Nucleated RBC 0.000 (0.0-0.012) K/mm3 Nucleated RBC % 0.0 (0.0-0.2) % Sodium 132 L (137-145) mmol/L Potassium 4.0 (3.4-5.0) mmol/L Chloride 103 (98-107) mmol/L Carbon Dioxide 23 (22-30) mmol/L Anion Gap 6 (4-12) mmol/L BUN 9 (7-17) mg/dL Creatinine 0.76 (0.7-1.0) mg/dL Estim Creat Clear Calc 106 ml/min Estimated GFR > 60 (59 - ) Glucose 96 (65-110) mg/dL Calcium 8.7 (8.4-10.2) mg/dL Total Bilirubin 0.5 (0.2-1.3) mg/dL AST 21 (14-36) U/L ALT 14 (6-35) U/L Alkaline Phosphatase 52 (38-126) U/L Total Protein 7.5 (6.3-8.2) g/dL Albumin 4.1 (3.5-5.1) g/dL Lipase 33 (23-300) U/L Urine Color Yellow (Yellow) Urine Appearance Clear (Clear) Urine pH 6.0 (5.0-9.0) Ur Specific [place] 1.017 (1.001-1.035) Urine Protein Negative (Negative) mg/dL Urine Glucose (UA) Negative (Negative) mg/dL Urine Ketones Negative (Negative) mg/dL Ur Blood (Man) Trace (Negative) Urine Nitrate Negative (Negative) Urine Bilirubin Negative (Negative) Urine Urobilinogen 1.0 (<2.0) mg/dL Leukocyte Esterase Rfl Negative (Negative) LYDIA/UL Urine RBC 0-2 (0-2) /hpf Urine WBC 0-5 (0-3) /hpf Ur Squamous Epith Cells None seen (Few) /hpf Urine Bacteria None seen /hpf Urine Casts 0-2 POC Urine HCG, Qual Negative (Negative) Imaging Data Radiologist's impression: ITS Impressions Abdomen/Pelvis CT 07/10/25 12:21 IMPRESSION: 1. 2.4 cm likely ruptured left ovarian corpus luteum cyst with minimal likely secondary free fluid at the right adnexa. No other acute intra-abdominal/pelvic process. 2. Fluid in the distal esophagus which could be due to recent fluid ingestion or reflux. Discharge Plan Discharge Clinical Impression: Ovarian cyst rupture Abdominal pain Qualifiers: Abdominal location: lower abdomen, unspecified Qualified Code(s): R10.30 - Lower abdominal pain, unspecified Patient Disposition: Home Condition: Stable Instructions: Ruptured Ovarian Cyst (ED) Additional Instructions: Can take Tylenol or IBuprofen for pain , follow with your doctor Patient Language: Serbian Prescriptions: No Action medroxyprogesterone [Depo-Provera] 150 mg/mL syringe 150 mg IM [id number] Qty: 1 3RF Follow-up/Referrals: Az Colindres MD [Physician, MARKET RELATIONSHIP MANAGER] PHYSICIAN,NETWORK DESKTOP SUPPORT SPECIALIST [Primary Care Provider, Internal Medicine] Time of Disposition: 12:44
== END 2025-07-10 13:10 | disposition home or self-care (01) ==
PROVIDERS: Emergency Provider Family Medicine
DX: N83.12 Corpus luteum cyst of left ovary (principal); R93.3 Abnormal findings on diagnostic imaging of other parts of digestive tract
CPT/HCPCS: 36415; 74177; 80053; 81001; 81025; 83690; 85025; 96360; 99284; J7030; Q9967